=== PATIENT | female | born 1940 | race Caucasian/White ===

== ENCOUNTER 2018-03-12 09:15 | Observation (INO) | payer MEDICARE ==
--- NOTE | 2018-03-12 09:45 | C.PDOC ---
History Of Present Illness 77 years old female with PMHx of COPD and HTN presents to ED for complaints of shortness of breath associated with cough with phlegm, chills, subjective fever, and chest pain from coughing that began 2-3 days ago. Patient reports at home Duenob treatment which was last used this morning at 1:30AM. Patient also states symptoms started after she recently got the Flu shot and Pneumovax shot. Denies runny nose, or any other complaints. Patient also states she stopped smoking 6 years ago. PMD: * Chadwick Poon. Time Seen by Provider: 03/12/18 09:24 Chief Complaint (Nursing): Cough, Cold, Congestion History Per: Patient History/Exam Limitations: no limitations Onset/Duration Of Symptoms: Days (2-3), Sudden Onset Current Symptoms Are (Timing): Still Present Recent travel outside of the [place]: No Past Medical History Reviewed: Historical Data, Nursing Documentation, Vital Signs Vital Signs: Last Vital Signs Temp 98.1 F 03/12/18 09:27 Pulse 74 03/12/18 09:27 Resp 18 03/12/18 09:27 BP 178/73 H 03/12/18 09:27 Pulse Ox 94 L 03/12/18 09:27 - Medical History PMH: Arthritis, Asthma, COPD (ASTHMA), Fractures (right hip broken with 3 screws), HTN Family History: States: Diabetes - Social History Hx Tobacco Use: No Hx Alcohol Use: Yes (occasional wine) Hx Substance Use: No - Immunization History Hx Tetanus Toxoid Vaccination: No Hx Influenza Vaccination: Yes Hx Pneumococcal Vaccination: Yes Review Of Systems Constitutional: Positive for: Fever, Chills Cardiovascular: Positive for: Chest Pain (From coughing ) Respiratory: Positive for: Cough (with phlegm ), Shortness of Breath Gastrointestinal: Negative for: Nausea, Vomiting, Diarrhea Skin: Negative for: Rash Neurological: Negative for: Weakness, Numbness Physical Exam - Physical Exam Appears: Non-toxic, No Acute Distress Skin: Normal Color, Warm, Dry, No Rash Head: Atraumatic, Normacephalic Eye(s): bilateral: Normal Inspection, PERRL, EOMI Oral Mucosa: Moist Throat: Normal, No Erythema, No Exudate, No Drooling Neck: Normal ROM, Supple Chest: Symmetrical, No Tenderness Cardiovascular: Rhythm Regular, No Murmur Respiratory: No Rales, No Rhonchi, No Wheezing, Other (Tight cough ) Gastrointestinal/Abdominal: Bowel Sounds (Active ), Soft, No Tenderness, No Distention Extremity: Normal ROM, Pedal Edema (Pitting Edema =1 bilaterally ) Extremity: Bilateral: Normal ROM Pulses: Left Radial: Normal, Right Radial: Normal Neurological/Psych: Oriented x3, Normal Speech Gait: Steady ED Course And Treatment - Laboratory Results Result Diagrams: 03/12/18 10:07 03/12/18 10:07 O2 Sat by Pulse Oximetry: 94 (RA) Pulse Ox Interpretation: Normal Medical Decision Making Medical Decision Making: Plan: * Albuterol nebulizer treatment/ peak flow * Solu-medrol * EKG * Blood work * CXR EKG: * Normal Sinus Rhythm at 74 bpm * LAD 12:07PM: * Discussed case with Chadwick Poon which accepts patient's admission. Disposition - Disposition Disposition: HOSPITALIZED Disposition Time: 12:01 Condition: GUARDED Forms: [facility] ([place]ine) - POA Present On Arrival: None - Clinical Impression Clinical Impression: Respiratory distress - Scribe Statement The provider has reviewed the documentation as recorded by the Scribe Va Acosta All medical record entries made by the Scribe were at my direction and personally dictated by me. I have reviewed the chart and agree that the record accurately reflects my personal performance of the history, physical exam, medical decision making, and the department course for this patient. I have also personally directed, reviewed, and agree with the discharge instructions and disposition. Decision To Admit - Pt Status Changed To: Hospital Disposition Of: Observation - . Bed Request Type: Telemetry Admitting Physician: Chadwick Milligan Patient Diagnosis: Respiratory distress
[2018-03-12] MEDS ORDERED: Albuterol-Ipratrop 3 mg / 0.5 (3 ml) UD ONE (09:57)
[2018-03-12] MEDS: Albuterol-Ipratrop 3 mg / 0.5 (3 ml) UD IH SCH ×3 (10:00→10:30)
[2018-03-12 10:16] LABS: BASO % 0.3 % (0.0-2.0); EOS # 0.3 K/uL (0.0-0.7); EOS % 2.8 % (0.0-4.0); HEMOGLOBIN 11.5 g/dL (11.0-16.0); LYMPH % 10.2 % (20.0-40.0); MEAN CELL VOLUME 85.9 fL (81.0-99.0); MEAN CORPUSCULAR HEMOGLOBIN 28.3 pg (27.0-31.0); MONO # 0.8 K/uL (0.0-0.8); MONO % 8.5 % (0.0-10.0); NEUT # 7.8 K/uL (1.8-7.0); NEUT % 78.2 % (50.0-75.0); RBC 4.04 Mil/uL (3.80-5.20); RED CELL DISTRIBUTION WIDTH 13.8 % (11.5-14.5)
[2018-03-12 10:40] LABS: ALB/GLOB RATIO 1.1 (1.0-2.1); ALBUMIN 3.8 g/dL (3.5-5.0); ALT/SGPT 28 U/L (9-52); AST/SGOT 26 U/L (14-36); BLOOD UREA NITROGEN 12 mg/dL (7-17); CALCIUM 8.6 mg/dl (8.6-10.4); GFR NON-AFRICAN AMERICAN > 60
[2018-03-12 10:53] LABS: B-TYPE NATRIURETIC PEPTIDE 839 pg/mL (0-900)
[2018-03-12] MEDS ORDERED: cefTRIAXone IV 1 gm in Dextros 50 ML IVPB ONE (10:54)
[2018-03-12] MEDS ORDERED: Azithromycin 500 MG in Sodium Chloride 0.9% 250 ML IVPB STA (10:54)
[2018-03-12] MEDS ORDERED: Azithromycin 500mg/250ML NS 500 MG/250 ML BAG IVPB ONE (11:21)
[2018-03-12] MEDS ORDERED: ceFAZolin 1 gm in NS 1 GM/100 ML BAG IVPB ONE (11:21)
[2018-03-12] MEDS ORDERED: guaiFENesin 200 mg/10 ml Syrup UD PO PRN (15:53)
--- NOTE | 2018-03-12 18:09 | RAD ---
Date of service: 03/12/2018 PROCEDURE: CHEST RADIOGRAPH, 1 VIEW HISTORY: SOB COMPARISON: 03/25/2016 FINDINGS: LUNGS: Clear. PLEURA: No pneumothorax or pleural fluid seen. CARDIOVASCULAR: There is atherosclerotic calcification of the aortic arch. Normal. OSSEOUS STRUCTURES: No significant abnormalities. VISUALIZED UPPER ABDOMEN: Normal. OTHER FINDINGS: None. IMPRESSION: No active disease.
[2018-03-12 18:51] VITALS: RESP 20
[2018-03-12] MEDS: Albuterol-Ipratrop 3 mg / 0.5 (3 ml) UD INH SCH (20:35)
[2018-03-13] MEDS: Albuterol-Ipratrop 3 mg / 0.5 (3 ml) UD INH SCH ×4 (01:46→19:30)
[2018-03-13] MEDS: MethylPREDNISolone 40 mg Vial IVP SCH ×2 (06:07→22:50)
[2018-03-13] MEDS: Enoxaparin 40 mg Syringe SC SCH (09:49)
[2018-03-13] MEDS: Azithromycin 500 MG in Sodium Chloride 0.9% 250 ML IVPB SCH (09:49)
[2018-03-13] MEDS: Metoprolol Succinate 50 mg XL Tab PO SCH (09:49)
[2018-03-14] MEDS: Albuterol-Ipratrop 3 mg / 0.5 (3 ml) UD INH SCH ×3 (02:26→14:02)
[2018-03-14] MEDS: MethylPREDNISolone 40 mg Vial IVP SCH (05:29)
[2018-03-14 07:56] VITALS: TEMP 97.8
[2018-03-14] MEDS: Metoprolol Succinate 50 mg XL Tab PO SCH ×2 (08:22→10:09)
--- NOTE | 2018-03-14 09:58 | HP ---
HISTORY OF PRESENT ILLNESS: The patient has history of COPD, complaining of shortness of breath and wheeze, weakness, tiredness. PHYSICAL EXAMINATION: GENERAL: The patient is awake, alert, and oriented. VITAL SIGNS: Temperature 98, pulse 90. HEENT: Within normal limits. NECK: Supple. CHEST: Symmetrical. HEART: Regular. ABDOMEN: Soft. EXTREMITIES: No edema. ASSESSMENT AND PLAN: The patient suffers from chronic obstructive pulmonary disease. The patient to be in bedrest, supportive care. Chadwick Milligan MD
[2018-03-14 10:07] VITALS: BP 159/78; PULSE 72
[2018-03-14] MEDS: Enoxaparin 40 mg Syringe SC SCH (10:09)
[2018-03-14] MEDS: Azithromycin 500 MG in Sodium Chloride 0.9% 250 ML IVPB SCH (10:09)
--- NOTE | 2018-03-14 14:17 | CP.PCM.PN ---
Subjective - Date & Time of Evaluation Date of Evaluation: 03/14/18 Time of Evaluation: 14:14 - Subjective Subjective: PGY3 Note for Dr. Milligan This patient states she has no complaints today when examined at bedside; states breathing is much improved and would like to go home. Denies fevers/chills, BOSCH, CP, SOB, abdominal pain, N/V/D, dysuria/freq/urg or lower extremity pain/swelling. SHe states she has been non compliant with daily inhalers 2/2 to cost. Objective - Vital Signs/Intake and Output Vital Signs (last 24 hours): Temp Pulse Resp BP Pulse Ox 97.8 F 72 20 159/78 H 97 03/14/18 07:00 03/14/18 10:07 03/14/18 07:00 03/14/18 10:07 03/14/18 12:00 - Medications Medications: Current Medications Albuterol/Ipratropium (Duoneb 3 Mg/0.5 Mg (3 Ml) Ud) 3 ml INH RQ6 ZEN Last Admin: 03/14/18 14:02 Dose: Not Given Amlodipine Besylate (Norvasc) 10 mg PO DAILY ZEN Last Admin: 03/14/18 10:08 Dose: Not Given Enoxaparin Sodium (Lovenox) 40 mg SC DAILY ZEN Last Admin: 03/14/18 10:09 Dose: 40 mg Guaifenesin (Robitussin) 200 mg PO Q4H PRN PRN Reason: Cough and congestion Azithromycin 500 mg/ Sodium (Chloride) 250 mls @ 250 mls/hr IVPB DAILY ZEN; Protocol Last Admin: 03/14/18 10:09 Dose: 250 mls/hr Ceftriaxone Sodium 1 gm/ (Sodium Chloride) 100 mls @ 100 mls/hr IVPB DAILY ZEN; Protocol Last Admin: 03/14/18 09:21 Dose: 100 mls/hr Methylprednisolone (Solu-Medrol) 40 mg IVP Q8 ZEN Last Admin: 03/14/18 05:29 Dose: 40 mg Metoprolol Succinate (Toprol Xl) 50 mg PO DAILY ZEN Last Admin: 03/14/18 10:09 Dose: Not Given Pantoprazole Sodium (Protonix Inj) 40 mg IVP DAILY ZEN Last Admin: 03/14/18 10:09 Dose: 40 mg - Labs Labs: 03/12/18 10:07 03/12/18 10:07 - Constitutional Appears: Well, Non-toxic - Head Exam Head Exam: ATRAUMATIC, NORMAL INSPECTION - Eye Exam Eye Exam: EOMI - ENT Exam ENT Exam: Mucous Membranes Moist - Neck Exam Neck Exam: Full ROM. absent: Lymphadenopathy - Respiratory Exam Respiratory Exam: Clear to Ausculation Bilateral, NORMAL BREATHING PATTERN. absent: Rales, Rhonchi, Wheezes - Cardiovascular Exam Cardiovascular Exam: REGULAR RHYTHM, +S1, +S2 - GI/Abdominal Exam GI & Abdominal Exam: Soft, Normal Bowel Sounds. absent: Tenderness - Extremities Exam Extremities Exam: Calf Tenderness. absent: Full ROM - Back Exam Back Exam: absent: CVA tenderness (L), CVA tenderness (R) - Neurological Exam Neurological Exam: Alert, Awake, Oriented x3 - Psychiatric Exam Psychiatric exam: Normal Affect - Skin Skin Exam: Warm Assessment and Plan - Assessment and Plan (Free Text) Assessment: 77yo F admitted for COPD exacerbation COPD Exacerbation -patient received IV abx, steroids, and Q4H breathing treatments and has improved -the patient has been noncompliant with daily inhalers 2/2 to cost; was given [place] form and multiple prescriptions for different inhalers so that they can shop around to see which are cheapest. Dr. Milligan also urged patient to come into the office as he has free samples for daily inhalers -patient will be d/c on Z-Pack, 50mg Prednisone daily for 7 days, and duonebs/albuterol for her nebulizer as needed HTN -c/w Amlodipine 10mg daily -Lopressor Extended release 50 daily The patient is clear for d/c as per Dr. Srini Reyes PGY3
[2018-03-14 14:25] VITALS: O2SAT 96
--- NOTE | 2018-03-14 21:19 | CARD ---
APPROVED REPORT Date of service: 03/12/2018 EKG Measurement Heart [id number] <Conclusion> Normal sinus rhythm Left axis deviation Abnormal ECG
== END 2018-03-14 14:24 | disposition home or self-care (01) ==
LOC: C.ER 09:15 → C.9E 12:04 → C.5S 20:22 → C.9E 22:14 → C.5S 22:50
PROVIDERS: ADMIT Internal Medicine Pulmonary Disease; ATTEND Internal Medicine Pulmonary Disease
DX: J44.1 Chronic obstructive pulmonary disease with (acute) exacerbation (principal); I10 Essential (primary) hypertension; R06.03 Acute respiratory distress; Z87.891 Personal history of nicotine dependence; Z91.19 Patient's noncompliance with other medical treatment and regimen
CPT/HCPCS: 71045; 80053; 82948; 83880; 84484; 85025; 87040; 93005; 94640; 96365; 96374; 97116; 97162; 99285; C9113; G0378; G8978; G8979; J0456; J0696; J1650; J2920; J2930; J7050

== ENCOUNTER 2018-05-17 09:55 | Emergency (ER) | payer MEDICARE ==
[2018-05-17 10:06] VITALS: TEMP 99.6
[2018-05-17 10:40] VITALS: RESP 22
[2018-05-17 10:58] LABS: BASO % 0.3 % (0.0-2.0); EOS # 0.2 K/uL (0.0-0.7); EOS % 2.7 % (0.0-4.0); HEMOGLOBIN 12.6 g/dL (11.0-16.0); LYMPH # 0.7 K/uL (1.0-4.3); LYMPH % 12.6 % (20.0-40.0); MEAN CORPUSCULAR HEMOGLOBIN 28.9 pg (27.0-31.0); MEAN CORPUSCULAR HGB CONC 32.8 g/dL (33.0-37.0); MEAN PLATELET VOLUME 10.8 fL (7.2-11.7); MONO # 0.7 K/uL (0.0-0.8); MONO % 12.7 % (0.0-10.0); NEUT # 4.1 K/uL (1.8-7.0); NEUT % 71.7 % (50.0-75.0); RBC 4.35 Mil/uL (3.80-5.20); RED CELL DISTRIBUTION WIDTH 14.9 % (11.5-14.5); WHITE BLOOD COUNT 5.7 K/uL (4.8-10.8)
[2018-05-17 11:00] LABS: MEAN CELL VOLUME 88.1 fL (81.0-99.0)
[2018-05-17 11:26] LABS: ALB/GLOB RATIO 1.5 (1.0-2.1); ALBUMIN 4.1 g/dL (3.5-5.0); ALT/SGPT 18 U/L (9-52); AST/SGOT 23 U/L (14-36); BLOOD UREA NITROGEN 12 mg/dL (7-17); CALCIUM 8.6 mg/dl (8.6-10.4); GFR NON-AFRICAN AMERICAN > 60
[2018-05-17] MEDS ORDERED: Albuterol-Ipratrop 3 mg / 0.5 (3 ml) UD ONE ×2 (11:42→11:54)
--- NOTE | 2018-05-17 11:42 | RAD ---
HISTORY: SOB, cough, COMPARISON: Chest x-ray performed 03/12/18 TECHNIQUE: Chest, one view. FINDINGS: Examination limited by habitus. LUNGS: Patchy left lower lobe infiltrate. Please note that chest x-ray has limited sensitivity for the detection of pulmonary masses. PLEURA: No significant pleural effusion identified. No definite pneumothorax . CARDIOVASCULAR: Cardiomegaly. Atherosclerotic calcifications of the aorta. OSSEOUS STRUCTURES: Degenerative changes. VISUALIZED UPPER ABDOMEN: Unremarkable. OTHER FINDINGS: None. IMPRESSION: Patchy left lower lobe infiltrate appears consistent with pneumonia. Correlate clinically. Cardiomegaly.
[2018-05-17] MEDS: Albuterol-Ipratrop 3 mg / 0.5 (3 ml) UD IH SCH ×3 (11:45→12:10)
[2018-05-17 11:59] LABS: B-TYPE NATRIURETIC PEPTIDE 474 pg/mL (0-900)
[2018-05-17 13:19] VITALS: BP 150/74; PULSE 90; O2SAT 92
--- NOTE | 2018-05-17 13:26 | C.PDOC ---
History Of Present Illness 78 year old female presents to the ED for evaluation of cough and trouble breathing which began around 3-4 days ago. Patient reports feeling short of breath and states she had a fever with temperature of 100.5 yesterday. Patient has been taking Duoneb every 6 hours. She is also complaining of leg pain, and cramping sensation to the back of her legs. She denies chest pain, extremity numbness/weakness, or recent trauma/injuries. Time Seen by Provider: 05/17/18 10:24 Chief Complaint (Nursing): Cough, Cold, Congestion History Per: Patient History/Exam Limitations: no limitations Onset/Duration Of Symptoms: Days (3-4) Current Symptoms Are (Timing): Still Present Current Respiratory Medications: See Home Med List Associated Symptoms: Fever. denies: Chest Pain Additional History Per: Patient Past Medical History Reviewed: Historical Data, Nursing Documentation, Vital Signs Vital Signs: Last Vital Signs Temp 99.6 F 05/17/18 10:00 Pulse 90 05/17/18 13:19 Resp 22 05/17/18 13:19 BP 150/74 05/17/18 13:19 Pulse Ox 92 L 05/17/18 13:19 - Medical History PMH: Arthritis, Asthma, COPD, Fractures (right hip broken with 3 screws), HTN Denies: Pneumonia (denies), Chronic Kidney Disease Surgical History: No Surg Hx Family History: States: Diabetes - Social History Hx Tobacco Use: No Hx Alcohol Use: Yes (occasional wine) Hx Substance Use: No - Immunization History Hx Tetanus Toxoid Vaccination: No Hx Influenza Vaccination: Yes Hx Pneumococcal Vaccination: Yes Review Of Systems Constitutional: Positive for: Fever Cardiovascular: Negative for: Chest Pain Respiratory: Positive for: Cough, Shortness of Breath Musculoskeletal: Positive for: Leg Pain Neurological: Negative for: Weakness, Numbness Physical Exam - Physical Exam Appears: Non-toxic, No Acute Distress, Other (obese ) Skin: Normal Color, Warm, Dry Head: Atraumatic, Normacephalic Eye(s): bilateral: Normal Inspection Oral Mucosa: Moist Neck: Supple Chest: Symmetrical, No Deformity, No Tenderness Cardiovascular: Rhythm Regular, No Murmur Respiratory: No Rales, No Rhonchi, Wheezing Extremity: Normal ROM, No Calf Tenderness, Capillary Refill (less than 2 seconds ), Other (tortuous varicose veins and 1+ pitting edema bilaterally ) Pulses: Left Dorsalis Pedis: Normal, Right Dorsalis Pedis: Normal Neurological/Psych: Oriented x3, Normal Speech, Normal Cognition Gait: Steady ED Course And Treatment - Laboratory Results Result Diagrams: 05/17/18 10:49 05/17/18 10:49 Lab Results: NT-Pro-B Natriuret Pep 474 pg/mL (0-900) 05/17/18 10:49 Total Bilirubin 0.7 mg/dL (0.2-1.3) 05/17/18 10:49 AST 23 U/L (14-36) 05/17/18 10:49 ALT 18 U/L (9-52) 05/17/18 10:49 Alkaline Phosphatase 110 U/L (38-126) 05/17/18 10:49 Total Protein 6.9 g/dL (6.3-8.3) 05/17/18 10:49 Albumin 4.1 g/dL (3.5-5.0) 05/17/18 10:49 Globulin 2.8 gm/dL (2.2-3.9) 05/17/18 10:49 Albumin/Globulin Ratio 1.5 (1.0-2.1) 05/17/18 10:49 O2 Sat by Pulse Oximetry: 92 Medical Decision Making Medical Decision Making: Progress: Venous duplex scan bl lower extremities ordered and reviewed. Solu-Medrol IVP given. On re-exam, the patient reports improvement of symptoms. Lungs are CTA, heart is RRR, Abdomen is soft, non-tender and the patient is tolerating PO well. Ambulatory in the ED with steady gait and no shortness of breath. Follow up with the medical doctor within 1-2 days. Return if worsened. Disposition - Disposition Referrals: Chadwick Milligan MD [Staff Provider] - Disposition: HOME/ ROUTINE Disposition Time: 13:26 Condition: STABLE Additional Instructions: Follow up with the medical doctor within 1-2 days. Return if worsened. 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 - Scribe Statement The provider has reviewed the documentation as recorded by the Scribe (Kailyn Shanks) All medical record entries made by the Scribe were at my direction and personally dictated by me. I have reviewed the chart and agree that the record accurately reflects my personal performance of the history, physical exam, medical decision making, and the department course for this patient. I have also personally directed, reviewed, and agree with the discharge instructions and disposition.
--- NOTE | 2018-05-19 13:35 | VASCLAB ---
Date of service: 05/17/2018 PROCEDURE: Lower Extremity Venous Duplex Exam. HISTORY: leg swelling and pain bilateral, r/o DVT PRIORS: None. TECHNIQUE: Bilateral common femoral, femoral, popliteal and posterior tibial, peroneal and great saphenous veins were evaluated. Flow was assessed with color Doppler, compressibility, assessment of phasic flow and augmentation response. Report prepared by Jose Miguel Wayne, BS, RVT FINDINGS: RIGHT: 1. Common Femoral Vein: 1.1. Compressibility - Fully compressible: Thrombus - None : Flow - Phasic: Augmentation -Normal: Reflux - None. 2. Femoral Vein: 2.1. Compressibility - Fully compressible: Thrombus - None : Flow - Phasic: Augmentation -Normal: Reflux - None. 3. Popliteal Vein: 3.1. Compressibility - Fully compressible: Thrombus - None : Flow - Phasic: Augmentation -Normal: Reflux - None. 4. Posterior Tibial Vein: 4.1. Compressibility - Fully compressible: Thrombus - None: Flow - Phasic: Augmentation -Normal: Reflux - None. 5. Peroneal Vein: 5.1. Compressibility - Fully compressible: Thrombus - None: Flow - Phasic: Augmentation -Normal: Reflux - None. 6. Great Saphenous Vein: 6.1. Compressibility - Fully compressible: Thrombus - None: Flow - Phasic: Augmentation - Normal: Reflux - Yes. LEFT: 1. Common Femoral Vein: 1.1. Compressibility - Fully compressible: Thrombus - None: Flow - Phasic: Augmentation -Normal: Reflux - None. 2. Femoral Vein: 2.1. Compressibility - Fully compressible: Thrombus - None: Flow - Phasic: Augmentation -Normal: Reflux - None. 3. Popliteal Vein: 3.1. Compressibility - Fully compressible: Thrombus - None : Flow - Phasic: Augmentation -Normal: Reflux - None. 4. Posterior Tibial Vein: 4.1. Compressibility - Fully compressible: Thrombus - None: Flow - Phasic: Augmentation -Normal: Reflux - None. 5. Peroneal Vein: 5.1. Compressibility - Fully compressible: Thrombus - None: Flow - Phasic: Augmentation -Normal: Reflux - None. 6. Great Saphenous Vein: 6.1. Compressibility - Fully compressible: Thrombus - None: Flow - Phasic: Augmentation - Normal: Reflux - Yes. OTHER FINDINGS: Right: None significant. Left: None significant. IMPRESSION: Right: No evidence of deep or superficial vein thrombosis of the right lower extremity. 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 Left: No evidence of deep or superficial vein thrombosis of the left lower extremity. Valvular incompetence of the left greater saphenous vein.
== END 2018-05-17 13:46 | disposition home or self-care (01) ==
LOC: C.ER 09:55
DX: J44.0 Chronic obstructive pulmonary disease with (acute) lower respiratory infection (principal); J20.9 Acute bronchitis, unspecified; Z87.891 Personal history of nicotine dependence; I10 Essential (primary) hypertension
CPT/HCPCS: 71045; 80053; 83880; 85025; 93970; 96374; 99285; J2930

== ENCOUNTER 2018-08-26 00:22 | Emergency (ER) | payer MEDICARE ==
[2018-08-26 01:31] VITALS: BP 165/93; PULSE 59; RESP 16; TEMP 97.9
[2018-08-26 01:33] VITALS: O2SAT 94
--- NOTE | 2018-08-26 01:33 | C.PDOC ---
History Of Present Illness 78 year old female brought in by daughter who noticed patient had swelling to the right ankle and right foot for the past week. Patient is currently complaining of pain to the area radiating to the right tibial lambert. Denies trauma, calf pain, fever, redness, or lesions. Time Seen by Provider: 08/26/18 00:59 Chief Complaint (Nursing): Lower Extremity Problem/Injury History Per: Patient History/Exam Limitations: no limitations Onset/Duration Of Symptoms: Days Current Symptoms Are (Timing): Still Present Recent travel outside of the [place]: No Past Medical History Reviewed: Historical Data, Nursing Documentation, Vital Signs Vital Signs: Last Vital Signs Temp 97.7 F 08/26/18 00:39 Pulse 60 08/26/18 00:39 Resp 20 08/26/18 00:39 BP 189/83 H 08/26/18 00:39 Pulse Ox 94 L 08/26/18 00:39 Primary Care Provider: Chadwick Milligan - Medical History PMH: Arthritis, Asthma, COPD, Fractures (right hip broken with 3 screws), HTN Denies: Pneumonia (denies), Chronic Kidney Disease Family History: States: Diabetes - Social History Hx Tobacco Use: No Hx Alcohol Use: Yes (occasional wine) Hx Substance Use: No - Immunization History Hx Tetanus Toxoid Vaccination: No Hx Influenza Vaccination: Yes Hx Pneumococcal Vaccination: Yes Review Of Systems Constitutional: Negative for: Fever Musculoskeletal: Positive for: Other (Right ankle/foot pain and swelling) Neurological: Negative for: Weakness, Numbness Physical Exam - Physical Exam Appears: Non-toxic, No Acute Distress Skin: Normal Color, Warm Head: Atraumatic, Normacephalic Eye(s): bilateral: Normal Inspection Extremity: Normal ROM (x4), Capillary Refill (<2 seconds), Other (Nonpitting edema to right ankle and right lateral foot. Scattered hyperpigmentation with chronic skin changes to tibial lambert area. Fine varicose veins. No calf tenderness, erythema, warmth, or maceration of toes.) Pulses: Left Dorsalis Pedis: Normal, Right Dorsalis Pedis: Normal Neurological/Psych: Oriented x3, Normal Speech, Normal Motor, Normal Sensation Gait: Steady ED Course And Treatment O2 Sat by Pulse Oximetry: 94 (Room air) Pulse Ox Interpretation: Normal Progress Note: Tylenol and toradol administered. Patient reports improvement of pain, she is resting comfortably in no acute distress, ambulatory with steady gait, vitals are stable, will discharge home with Rx and instructions to follow up with PMD. Disposition Counseled Patient/Family Regarding: Studies Performed, Diagnosis, Need For Followup, Rx Given - Disposition Disposition: HOME/ ROUTINE Disposition Time: 01:30 Condition: STABLE Additional Instructions: Please follow up with PMD Leg elevation Take medications as directed Return to ER if redness, heat to area worse Prescriptions: Naproxen 375 mg PO BID #20 tablet Instructions: Dependent Edema (DC) Forms: [email or web address] (Danish) - Clinical Impression Clinical Impression: Venous stasis, Dependent edema - PA / PILOT [employer]IGHW[employer] PATROL / Resident Statement MD/DO has reviewed & agrees with the documentation as recorded. - Scribe Statement The provider has reviewed the documentation as recorded by the Scribdayo [place] All medical record entries made by the Serenityibdayo were at my direction and personally dictated by me. I have reviewed the chart and agree that the record accurately reflects my personal performance of the history, physical exam, medical decision making, and the department course for this patient. I have also personally directed, reviewed, and agree with the discharge instructions and disposition.
== END 2018-08-26 01:50 | disposition home or self-care (01) ==
LOC: C.ER 00:22
DX: R60.9 Edema, unspecified (principal); I87.8 Other specified disorders of veins
CPT/HCPCS: 96372; 99283; J1885